=== PATIENT | female | born 1975 | race Caucasian/White ===

== ENCOUNTER 2019-06-20 17:39 | Emergency (ER) | payer MEDICAID, OTHER ==
[~2019-06-20] VITALS: Ht 154.9 cm; Wt 68.9 kg
[2019-06-20 18:45] LABS: BASOPHILS # (AUTO) 0.08 x10^3/uL (0-0.1); BASOPHILS % (AUTO) 1 % (0-1); EOSINOPHILS # (AUTO) 0.13 x10^3/uL (0-0.4); EOSINOPHILS % (AUTO) 2 % (1-7); LYMPHOCYTES # (AUTO) 2.98 x10^3/uL (1-3.4); LYMPHOCYTES % (AUTO) 36 % (22-44); MD NO; MEAN CORPUSCULAR HEMOGLOBIN 30.9 pg (27.0-34.8); MEAN CORPUSCULAR HGB CONC 33.9 g/dL (32.4-35.8); MEAN CORPUSCULAR VOLUME 91.3 fL (80-100); MEAN PLATELET VOLUME 8.4 fL (7.4-10.4); MONOCYTES # (AUTO) 0.42 x10^3/uL (0.2-0.8); MONOCYTES % (AUTO) 5 % (2-9); NEUTROPHILS # (AUTO) 4.73 x10^3/uL (1.8-6.8); NEUTROPHILS % (AUTO) 57 % (42-75); PLATELET COUNT 250 x10^3/uL (130-400); RED CELL DISTRIBUTION WIDTH 13.1 % (9.6-15.2)
[2019-06-20 18:57] LABS: ALANINE AMINOTRANSFERASE 41 U/L (12-78); ALBUMIN 3.8 g/dL (3.4-5.0); ANION GAP 6 mmol/L (5-15); CALCIUM 8.2 mg/dL (8.5-10.1); CHLORIDE 108 mmol/L (98-107); CREATININE 0.75 mg/dL (0.55-1.02)
[2019-06-20 19:01] LABS: ALKALINE PHOSPHATASE 106 U/L (45-117); BILIRUBIN,TOTAL 0.3 mg/dL (0.2-1.0); TOTAL PROTEIN 7.7 g/dL (6.4-8.2); TROPONIN I < 0.015 ng/mL (0.000-0.045)
--- NOTE | 2019-06-20 20:16 | NUR ---
CIGARETTE TESTER: PT. TO ROOM FROM LOBBY AT THIS TIME.
--- NOTE | 2019-06-20 20:49 | NUR ---
PT HERE FOR LEFT SIDED INTERMITTENT CHEST PAIN THAT RADIATES TO NECK,ARM AND BACK X 3 DAYS. PAIN WORSE WHEN PT IS LAYING DOWN. PAIN IS SHARP AND 7/10. VSS. FAMILY AT BEDSIDE. CALL LIGHT IN REACH
--- NOTE | 2019-06-20 21:39 | NUR ---
PT UP TO BATHROOM FOR UA.
[2019-06-20] MEDS ORDERED: KETOROLAC 30 MG/1 ML ONE (21:56)
[2019-06-20] MEDS ORDERED: ACETAMINOPHEN 500 MG TABLET ONE (21:56)
[2019-06-20] MEDS ORDERED: ACETAMINOPHEN 500 MG TABLET PO ONE (22:00)
[2019-06-20] MEDS ORDERED: KETOROLAC 30 MG/1 ML IVPush ONE (22:00)
[2019-06-20] MEDS ORDERED: KETOROLAC 30 MG/1 ML IM ONE (22:00)
--- NOTE | 2019-06-20 22:02 | NUR ---
CYNTHIA SEN TO LAB. PT MEDICATED FOR PAIN. CALL LIGHT IN REACH
[2019-06-20 22:04] LABS: MICROSCOPIC NOT IND
[2019-06-20 22:08] LABS: CULTURE INDICATED? NO
--- NOTE | 2019-06-20 22:33 | NUR ---
Patient given discharge instructions and they have confirmed that they understand the instructions. Patient ambulatory with steady gait.
[2019-06-20 22:34] VITALS: BP 138/78
== END 2019-06-20 22:35 | disposition home or self-care (01) ==
LOC: EDBD 17:39 → ED 22:04
DX: S16.1XXA Strain of muscle, fascia and tendon at neck level, initial encounter (principal); M25.512 Pain in left shoulder; R07.89 Other chest pain; X58.XXXA Exposure to other specified factors, initial encounter; Y93.89 Activity, other specified; Y92.89 Other specified places as the place of occurrence of the external cause; Y99.8 Other external cause status
CPT/HCPCS: 36415; 71045; 80053; 81003; 84484; 85025; 93005; 96372; 99285; J1885